=== PATIENT | male | born 1955 | race Caucasian/White ===

== ENCOUNTER 2019-04-03 07:48 | Day surgery (SDC) | payer MEDICARE, OTHER ==
[2019-04-03] MEDS ORDERED: Marcaine 0.5% SDV 10 ML IJ ONE (07:49)
[2019-04-03] MEDS ORDERED: VERSED 5 MG/5 ML ONE (08:33)
[2019-04-03] MEDS ORDERED: DIPRIVAN 200 MG/20 ML IV ONE (09:23)
[2019-04-03] MEDS ORDERED: Ketamine HCl 50 MG/ML ONE (09:23)
--- NOTE | 2019-04-03 12:05 | XRAY ---
Indication: Left knee genicular nerve block. Intraoperative fluoroscopy was provided for 9 seconds. 2 digital spot images submitted for interpretation demonstrates left knee anterior needle tips projecting adjacent to the medial/lateral femoral condyles and medial tibial plateau. Correlate with intraoperative findings/report.
--- NOTE | 2019-04-03 12:07 | XRAY ---
Indication: Right knee genicular nerve block. Intraoperative fluoroscopy was provided for 10 seconds. 2 digital spot images submitted for interpretation demonstrates right knee anterior needle tips projecting adjacent to the medial/lateral femoral condyles and medial tibial plateau. Correlate with intraoperative findings/report.
--- NOTE | 2019-04-03 12:24 | XRAY ---
10 seconds fluoroscopy time in surgery for right knee injection.
--- NOTE | 2019-04-03 12:24 | XRAY ---
9 seconds fluoroscopy time in surgery for left knee injection.
[2019-04-03] MEDS ORDERED: Lactated Ringers 1,000 ML IV ONE (15:39)
== END 2019-04-03 09:40 | disposition home or self-care (01) ==
LOC: SDC-PAIN 07:48
PROVIDERS: ATTEND Psychiatry & Neurology Pain Medicine
DX: M17.0 Bilateral primary osteoarthritis of knee (principal); E11.9 Type 2 diabetes mellitus without complications; I10 Essential (primary) hypertension; J44.9 Chronic obstructive pulmonary disease, unspecified; I25.10 Atherosclerotic heart disease of native coronary artery without angina pectoris; Z79.899 Other long term (current) drug therapy
CPT/HCPCS: 64454; 73560; 77002; 82962; J2250; J2704

== ENCOUNTER 2019-04-24 08:40 | Day surgery (SDC) | payer MEDICARE, OTHER ==
[2019-04-24] MEDS ORDERED: Depo-Medrol 40 MG/ML IM ONE (08:41)
[2019-04-24] MEDS ORDERED: Xylocaine-Mpf 2% 5 Ml Vial IJ ONE (08:41)
[2019-04-24] MEDS ORDERED: VERSED 5 MG/5 ML ONE (09:24)
[2019-04-24] MEDS ORDERED: DIPRIVAN 200 MG/20 ML IV ONE (09:53)
[2019-04-24] MEDS ORDERED: Ketamine HCl 50 MG/ML ONE (09:53)
--- NOTE | 2019-04-24 10:35 | XRAY ---
Indication: Bilateral L3-S1 MBB. Intraoperative fluoroscopy was provided for 8 seconds. Single digital spot image submitted for interpretation demonstrates posterior needle tips projecting over the expected course of the left and right L3-S1 nerve roots. Correlate with intraoperative findings/report.
--- NOTE | 2019-04-24 11:26 | XRAY ---
8 seconds fluoroscopy time in surgery for bilateral L3-S1 MBB.
[2019-04-24] MEDS ORDERED: Lactated Ringers 1,000 ML IV ONE (14:02)
== END 2019-04-24 10:20 | disposition home or self-care (01) ==
LOC: SDC-PAIN 08:40
PROVIDERS: ATTEND Psychiatry & Neurology Pain Medicine
DX: M47.816 Spondylosis without myelopathy or radiculopathy, lumbar region (principal); M47.817 Spondylosis without myelopathy or radiculopathy, lumbosacral region; E11.9 Type 2 diabetes mellitus without complications; I25.10 Atherosclerotic heart disease of native coronary artery without angina pectoris; I10 Essential (primary) hypertension; I25.2 Old myocardial infarction; J44.9 Chronic obstructive pulmonary disease, unspecified; Z79.899 Other long term (current) drug therapy
CPT/HCPCS: 64493; 64494; 64495; 72020; 77002; 82962; J1030; J2250; J2704

== ENCOUNTER 2019-07-10 07:34 | Day surgery (SDC) | payer MEDICARE, OTHER ==
[2019-07-10] MEDS ORDERED: Depo-Medrol 40 MG/ML IM ONE (07:35)
[2019-07-10] MEDS ORDERED: Xylocaine 1% Vial 30 ML PF IJ ONE (07:35)
[2019-07-10] MEDS ORDERED: Marcaine 0.5% SDV 10 ML IJ ONE (07:35)
[2019-07-10] MEDS ORDERED: DIPRIVAN 200 MG/20 ML IV ONE ×2 (08:45→09:17)
[2019-07-10] MEDS ORDERED: Ketamine HCl 50 MG/ML ONE (08:48)
[2019-07-10] MEDS ORDERED: Versed 2 MG/2 ML Injection ONE (09:12)
--- NOTE | 2019-07-10 10:35 | XRAY ---
Indication: Left genicular nerve ablation. Intraoperative fluoroscopy was provided for 19 seconds. 2 digital spot images submitted for interpretation demonstrates left knee anterior needle tips projecting adjacent to the medial/lateral femoral condyles and medial tibial plateau. Correlate with intraoperative findings/report.
--- NOTE | 2019-07-10 11:22 | XRAY ---
19 seconds fluoroscopy time in surgery for left genicular nerve ablation.
[2019-07-10] MEDS ORDERED: Lactated Ringers 1,000 ML IV ONE (13:47)
== END 2019-07-10 09:50 | disposition home or self-care (01) ==
LOC: SDC-PAIN 07:34
PROVIDERS: ATTEND Psychiatry & Neurology Pain Medicine
DX: M17.12 Unilateral primary osteoarthritis, left knee (principal); E11.9 Type 2 diabetes mellitus without complications; I10 Essential (primary) hypertension; J44.9 Chronic obstructive pulmonary disease, unspecified; I25.10 Atherosclerotic heart disease of native coronary artery without angina pectoris; Z79.899 Other long term (current) drug therapy
CPT/HCPCS: 64624; 73560; 77002; 82962; J1030; J2001; J2250; J2704

== ENCOUNTER 2019-08-28 07:39 | Day surgery (SDC) | payer MEDICARE, OTHER ==
[2019-08-28] MEDS ORDERED: Depo-Medrol 40 MG/ML IM ONE (07:40)
[2019-08-28] MEDS ORDERED: Marcaine 0.5% SDV 10 ML IM ONE (07:40)
[2019-08-28] MEDS ORDERED: DIPRIVAN 200 MG/20 ML IV ONE (09:00)
[2019-08-28] MEDS ORDERED: Ketamine HCl 50 MG/ML ONE (09:00)
--- NOTE | 2019-08-28 10:58 | XRAY ---
Indication: Bilateral L4-S1 MBB. Intraoperative fluoroscopy was provided for 7 seconds. Single digital spot image submitted for interpretation demonstrates posterior needle tips projecting over the expected course of the left and right L4-S1 nerve roots. Correlate with intraoperative findings/report.
--- NOTE | 2019-08-28 11:52 | XRAY ---
7 seconds fluoroscopy time in surgery for bilateral L4-S1 MBB.
[2019-08-28] MEDS ORDERED: Lactated Ringers 1,000 ML IV ONE (14:50)
== END 2019-08-28 09:35 | disposition home or self-care (01) ==
LOC: SDC-PAIN 07:39
PROVIDERS: ATTEND Psychiatry & Neurology Pain Medicine
DX: M47.816 Spondylosis without myelopathy or radiculopathy, lumbar region (principal); E11.9 Type 2 diabetes mellitus without complications; I10 Essential (primary) hypertension; I25.10 Atherosclerotic heart disease of native coronary artery without angina pectoris; J44.9 Chronic obstructive pulmonary disease, unspecified; I25.2 Old myocardial infarction
CPT/HCPCS: 64493; 64494; 72020; 77002; 82962; J1030; J2704

== ENCOUNTER 2019-10-30 07:48 | Day surgery (SDC) | payer MEDICARE, OTHER ==
[~2019-10-30 07:48] MED LIST: DIPRIVAN 200 MG/20 ML IV ONE; Ketamine HCl 50 MG/ML ONE
[2019-10-30] MEDS ORDERED: Xylocaine 1% Vial 30 ML PF IJ ONE (07:49)
[2019-10-30] MEDS ORDERED: BUPIVACAINE 0.5% VIAL IJ ONE (07:49)
[2019-10-30] MEDS ORDERED: Depo-Medrol 40 MG/ML IM ONE (07:49)
[2019-10-30] MEDS ORDERED: DIPRIVAN 200 MG/20 ML IV ONE (09:26)
--- NOTE | 2019-10-30 11:36 | XRAY ---
Indication: Left L3-S1 RFA. Intraoperative fluoroscopy was provided for 30 seconds. 3 digital spot images submitted for interpretation demonstrates posterior needle tips projecting over the expected left L3-S1 nerve roots. Correlate with intraoperative findings/report.
--- NOTE | 2019-10-30 11:41 | XRAY ---
30 seconds fluoroscopy time in surgery for left L4-S1 RFA.
[2019-10-30] MEDS ORDERED: Lactated Ringers 1,000 ML IV ONE (15:22)
== END 2019-10-30 09:40 | disposition home or self-care (01) ==
LOC: SDC-PAIN 07:48
PROVIDERS: ATTEND Psychiatry & Neurology Pain Medicine
DX: M47.816 Spondylosis without myelopathy or radiculopathy, lumbar region (principal); E11.9 Type 2 diabetes mellitus without complications; I10 Essential (primary) hypertension; J44.9 Chronic obstructive pulmonary disease, unspecified; Z79.899 Other long term (current) drug therapy
CPT/HCPCS: 64635; 64636; 72100; 77002; 82962; J1030; J2001; J2704

== ENCOUNTER 2019-12-04 07:53 | Day surgery (SDC) | payer MEDICARE, OTHER ==
[2019-12-04] MEDS ORDERED: Lactated Ringers 1,000 ML IV ONE (07:54)
[2019-12-04] MEDS ORDERED: BUPIVACAINE 0.5% VIAL IJ ONE (07:54)
[2019-12-04] MEDS ORDERED: Xylocaine 1% Vial 30 ML PF IJ ONE (07:54)
[2019-12-04] MEDS ORDERED: Depo-Medrol 40 MG/ML IM ONE (07:54)
[2019-12-04] MEDS ORDERED: VERSED 5 MG/5 ML ONE (09:14)
--- NOTE | 2019-12-04 10:44 | XRAY ---
Indication: Right L4-S1 RFA. Intraoperative fluoroscopy was provided for 16 seconds. 3 digital spot images submitted for interpretation demonstrates posterior needle tips projecting over the expected right L4-S1 nerve roots. Correlate with intraoperative findings/report.
--- NOTE | 2019-12-04 10:46 | XRAY ---
16 seconds fluoroscopy time in surgery for right L4-S1 RFA.
== END 2019-12-04 09:45 | disposition home or self-care (01) ==
LOC: SDC-PAIN 07:53
PROVIDERS: ATTEND Psychiatry & Neurology Pain Medicine
DX: M47.816 Spondylosis without myelopathy or radiculopathy, lumbar region (principal); E11.9 Type 2 diabetes mellitus without complications; I10 Essential (primary) hypertension; J44.9 Chronic obstructive pulmonary disease, unspecified; I25.10 Atherosclerotic heart disease of native coronary artery without angina pectoris; Z79.899 Other long term (current) drug therapy
CPT/HCPCS: 64635; 64636; 72100; 77002; 82962; J1030; J2001; J2250; J2704

== ENCOUNTER 2020-07-15 06:53 | Day surgery (SDC) | payer MEDICARE, OTHER ==
[2020-07-15] MEDS ORDERED: LIDOCAINE HCL 2% 100 MG/5 ML IJ ONE (06:54)
[2020-07-15] MEDS ORDERED: Decadron 4 MG INJ IV ONE (06:54)
[2020-07-15] MEDS ORDERED: Versed 2 MG/2 ML Injection ONE (07:43)
[2020-07-15] MEDS ORDERED: DIPRIVAN 200 MG/20 ML IV ONE (08:32)
[2020-07-15] MEDS ORDERED: Lactated Ringers 1,000 ML IV ONE (16:30)
--- NOTE | 2020-07-15 17:38 | XRAY ---
44 seconds fluoroscopy time in surgery for right C2-C5 MBB.
== END 2020-07-15 08:57 | disposition home or self-care (01) ==
LOC: SDC-PAIN 06:53
PROVIDERS: ATTEND Psychiatry & Neurology Pain Medicine
DX: M47.812 Spondylosis without myelopathy or radiculopathy, cervical region (principal); E11.9 Type 2 diabetes mellitus without complications; I10 Essential (primary) hypertension; J44.9 Chronic obstructive pulmonary disease, unspecified; Z79.899 Other long term (current) drug therapy
CPT/HCPCS: 64490; 64491; 64492; 72040; 77002; 82947; J1100; J2250; J2704

== ENCOUNTER 2020-09-30 07:51 | Day surgery (SDC) | payer MEDICARE, OTHER ==
[2020-09-30] MEDS ORDERED: Depo-Medrol 40 MG/ML IM ONE (07:52)
[2020-09-30] MEDS ORDERED: Sodium Chloride 0.9(Preservative Free) 10 ML IJ ONE (07:52)
[2020-09-30] MEDS ORDERED: Versed 2 MG/2 ML Injection ONE (08:44)
[2020-09-30 08:47] LABS: Hematocrit 39.2 % (42-50); Hemoglobin 12.9 gm/dl (12.5-18.0); Mean Cell Volume 85.2 fl (78-100); Mean Corpuscular Hgb Concent. 32.9 g/dl (32-36); Mean Platelet Volume 12.5 fl (7.5-11.0); Platelet Count 175 K/mm3 (150-450); Red Cell Distribution Width 13.6 % (11.5-14.0)
[2020-09-30 09:00] LABS: Slide Review YES
[2020-09-30] MEDS ORDERED: DIPRIVAN 200 MG/20 ML IV ONE (09:21)
[2020-09-30] MEDS ORDERED: Xylocaine-Mpf 2% 5 Ml Vial ONE (09:22)
[2020-09-30 10:38] LABS: ALBUMIN 4.5 g/dL (3.5-5.0); ALKALINE PHOSPHATASE 76 U/L (38-126); ANION GAP 14.8 MEQ/L (5-15); BLOOD UREA NITROGEN 25 mg/dL (9-20); CHLORIDE 99 mmol/L (98-107); Calcium 9.7 mg/dL (8.4-10.2); Carbon Dioxide 29 mmol/L (22-30); Cholesterol 113 mg/dL (50-200); Creatinine 1 0.86 mg/dL (0.66-1.25); EST GLOMERULAR FILTRATION RATE > 60.0 ML/MIN; Glucose 134 mg/dL (74-106); HDL CHOLESTEROL 53 mg/dL (40-60); LDL, DIRECT 44 mg/dL (30-100); Potassium 4.1 mmol/L (3.5-5.1); Risk Ratio 2.1; SGOT/AST 33 U/L (17-59); SGPT/ALT 28 U/L (0-50); SODIUM 139 mmol/L (137-145); TRIGLYCERIDE 75 mg/dL (30-150); Total Protein 7.6 g/dL (6.3-8.2)
--- NOTE | 2020-09-30 11:32 | XRAY ---
Indication: Left L4-S1 transforaminal DREA. Intraoperative fluoroscopy provided for 33 seconds. 5 digital spot images submitted for interpretation demonstrates posterior needle tips projecting over the expected left L4 and L5 nerve roots. Small amount of contrast injected for needle tip placement. Correlate with intraoperative findings/report.
[2020-09-30] MEDS ORDERED: Lactated Ringers 1,000 ML IV ONE (11:40)
--- NOTE | 2020-09-30 11:40 | XRAY ---
33 seconds fluorscopy time in surgery for left L4-S1 transforaminal DREA.
== END 2020-09-30 09:48 | disposition home or self-care (01) ==
LOC: SDC-PAIN 07:51
PROVIDERS: ATTEND Psychiatry & Neurology Pain Medicine
DX: M54.16 Radiculopathy, lumbar region (principal); E11.9 Type 2 diabetes mellitus without complications; I10 Essential (primary) hypertension; Z79.899 Other long term (current) drug therapy; I25.10 Atherosclerotic heart disease of native coronary artery without angina pectoris; J44.9 Chronic obstructive pulmonary disease, unspecified; I25.2 Old myocardial infarction
CPT/HCPCS: 36415; 64483; 64484; 72100; 77003; 80053; 80061; 82947; 83036; 83721; 85027; J1030; J2250; J2704; Q9966

== ENCOUNTER 2020-11-25 06:51 | Day surgery (SDC) | payer MEDICARE, OTHER ==
[2020-11-25] MEDS ORDERED: Depo-Medrol 40 MG/ML IM ONE (06:52)
[2020-11-25] MEDS ORDERED: BUPIVACAINE 0.5% VIAL IJ ONE (06:52)
[2020-11-25] MEDS ORDERED: Versed 2 MG/2 ML Injection ONE (07:47)
[2020-11-25] MEDS ORDERED: DIPRIVAN 200 MG/20 ML IV ONE (08:16)
[2020-11-25] MEDS ORDERED: Lactated Ringers 1,000 ML IV ONE (16:08)
--- NOTE | 2020-11-26 11:19 | XRAY ---
8 seconds fluoroscopy time in surgery for intra-articular injection of the left hip and the pes anseriunus.
--- NOTE | 2020-11-28 22:23 | XRAY ---
Indication: Left knee intra-articular and pes anserinus injections. Intraoperative fluoroscopy was provided for 8 seconds. A single digital spot image submitted for interpretation demonstrates the needle tip projected over the left femur intercondylar notch. A small amount of contrast has been injected for needle tip placement. Correlate with intraoperative findings/report.
== END 2020-11-25 08:45 | disposition home or self-care (01) ==
LOC: SDC-PAIN 06:51
PROVIDERS: ATTEND Psychiatry & Neurology Pain Medicine
DX: M17.12 Unilateral primary osteoarthritis, left knee (principal); E11.9 Type 2 diabetes mellitus without complications; Z79.899 Other long term (current) drug therapy
CPT/HCPCS: 20610; 73560; 77002; 82947; J1030; J2250; J2704; Q9966

== ENCOUNTER 2022-03-30 09:41 | Day surgery (SDC) | payer MEDICARE, OTHER ==
[2022-03-30] MEDS ORDERED: Depo-Medrol 40 MG/ML IM ONE (09:42)
[2022-03-30] MEDS ORDERED: Decadron 4 MG INJ IV ONE (09:42)
[2022-03-30] MEDS ORDERED: LIDOCAINE HCL 1% 50 MG/5 ML VL PF IJ ONE (09:42)
[2022-03-30] MEDS ORDERED: Sodium Chloride 0.9(Preservative Free) 10 ML IJ ONE (09:42)
[2022-03-30] MEDS ORDERED: Versed 2 MG/2 ML Injection ONE (10:21)
--- NOTE | 2022-03-30 12:06 | XRAY ---
Indication: Left L4-S1 transforaminal DREA. Intraoperative fluoroscopy provided for 28 seconds. 4 digital spot image submitted for interpretation demonstrates posterior needle tips projecting over the expected left L4 and L5 nerve roots. Small amount of contrast injected for needle tip placement. Correlate with intraoperative findings/report.
--- NOTE | 2022-03-30 12:06 | XRAY ---
Indication: Left piriformis injection. Intraoperative fluoroscopy provided for 14 seconds. Single digital spot image submitted for interpretation demonstrates posterior needle tip projecting over left piriformis muscle. Small amount of contrast injected for needle tip placement. Correlate with intraoperative findings/report.
--- NOTE | 2022-03-30 12:10 | XRAY ---
14 seconds of fluoroscopy was used in surgery for a left piriformis injection.
--- NOTE | 2022-03-30 12:10 | XRAY ---
28 seconds of fluoroscopy was used in surgery for a left L4-S1 transforaminal DREA.
[2022-03-30] MEDS ORDERED: Lactated Ringers 1,000 ML IV ONE (13:27)
== END 2022-03-30 11:40 | disposition home or self-care (01) ==
LOC: SDC-PAIN 09:41
PROVIDERS: ATTEND Psychiatry & Neurology Pain Medicine
DX: M54.16 Radiculopathy, lumbar region (principal); M79.18 Myalgia, other site; E11.9 Type 2 diabetes mellitus without complications; Z79.899 Other long term (current) drug therapy
CPT/HCPCS: 20553; 64483; 64484; 72100; 72170; 77002; 77003; 82947; J1030; J1100; J2001; J2250; Q9966